=== PATIENT | male | born 1965 | race Caucasian/White ===

== ENCOUNTER 2018-03-16 13:38 | Emergency (ER) | payer BC ==
[~2018-03-16] VITALS: Ht 185.4 cm; Wt 127.0 kg
[2018-03-16 13:38] VITALS: Ht 185.4 cm; Wt 127.0 kg
== END 2018-03-16 17:40 | disposition expired ==
LOC: ED 13:38
DX: I46.9 Cardiac arrest, cause unspecified (principal); J45.909 Unspecified asthma, uncomplicated; I10 Essential (primary) hypertension; F17.210 Nicotine dependence, cigarettes, uncomplicated; E11.9 Type 2 diabetes mellitus without complications